=== PATIENT | male | born 1940 | race Caucasian/White ===

== ENCOUNTER → 2018-09-11 | Outpatient (CLI) | payer OTHER, MEDICARE | LOC: FIMAGING 09:36 | PROVIDERS: ATTEND Internal Medicine Gastroenterology | DX: R10.9 Unspecified abdominal pain (principal); K57.30 Diverticulosis of large intestine without perforation or abscess without bleeding; K76.89 Other specified diseases of liver; N28.1 Cyst of kidney, acquired; J84.9 Interstitial pulmonary disease, unspecified ==